=== PATIENT | male | born 1930 | race Caucasian/White ===

== ENCOUNTER 2017-01-02 07:38 | Day surgery (SDC) | payer MEDICARE, BC ==
[~2017-01-02 07:38] MED LIST: Lactated Ringers 1,000 ML IV SCH; Sodium Chloride 0.9% 10 ML Syringe FLUSH PRN
[2017-01-02] MEDS ORDERED: ceFAZolin 1 GM in Sodium Chloride 0.9% 50 ML IV ONE (08:45)
[2017-01-02] MEDS ORDERED: fentaNYL 100 MCG/2 ML SDV IV ONE (09:00)
[2017-01-02] MEDS ORDERED: Propofol 200 MG/20 ML SDV IV ONE (09:00)
[2017-01-02] MEDS ORDERED: Bupivacaine 0.5% 30 ML SDV ONE (09:55)
[2017-01-02] MEDS ORDERED: Lidocaine 1% with EPINEPHrine 1:100,000 20 ML MDV ONE (09:56)
[2017-01-02] MEDS ORDERED: LANTUS SQ PRN (10:15)
[2017-01-02] MEDS ORDERED: Ondansetron 4 MG/2 ML SDV IVPUSH PRN (10:18)
--- NOTE | 2017-01-02 10:18 | PCM.OPNOTE ---
- General Post-Op/Procedure Note Date of Surgery/Procedure: 01/02/17 Operative Procedure(s): rih repair with mesh Findings: indirect hernia Pre Op Diagnosis: rih. without obstruction or gangrene Post-Op Diagnosis: Same Anesthesia Technique: Local (24 ml 1% lido with epi/0.5% buvipicaine), MAC Primary Surgeon: Mathew Long Anesthesia Provider: Danii Knott Pathology: hernia sac Complications: None Condition: Good Free Text/Narrative:: see dictation
[2017-01-02] MEDS: Tamsulosin 0.4 MG Cap.ER PO SCH (11:10)
[2017-01-02] MEDS: Levothyroxine 100 MCG Tab *PTOM PO SCH (11:11)
[2017-01-02] MEDS: Furosemide 40 MG Tab *PTOM PO SCH (11:11)
[2017-01-02] MEDS: Omeprazole 20 MG Cap.CR *PTOM PO SCH (11:11)
[2017-01-02] MEDS: Acetaminophen/HYDROcodone 325-5 MG Tab PO PRN ×2 (12:02→19:53)
--- NOTE | 2017-01-02 15:39 | OR ---
DATE OF OPERATION: 01/02/2017 SURGEON: Mathew Long MD PROCEDURE PERFORMED: Right inguinal hernia repair. PREOPERATIVE DIAGNOSES: Symptomatic right inguinal hernia without obstruction or gangrene. POSTOPERATIVE DIAGNOSES: Symptomatic right inguinal hernia without obstruction or gangrene. INDICATIONS FOR PROCEDURE: This is an 86-year-old white male with multiple medical problems. Most significant being stage 5 chronic renal disease, which requires dialysis 3 days a week. The patient has a hernia on the right side, which has affected his quality of life because it becomes incarcerated or has to be reduced multiple times during the day as a result of this he has become less active. He was offered and accepted an open hernia repair. INTRAOPERATIVE FINDINGS: As follows. This was done under local MAC. Total of 24 mL of 1:1 mixture of 1% lidocaine with epinephrine 0.5% bupivacaine was used, and the defect itself was repaired with a Bard mesh preshaped mesh with a lot number [id number], reference #[id number] with the use date by 08/29/2021. DESCRIPTION OF OPERATION: After an excellent sedation was given via anesthesia. The patient was prepped and draped in usual sterile manner. A 1:1 mixture of 1% lidocaine with epinephrine 0.5% bupivacaine was used for our local. We started by infiltrating in the area of the planned incision, which was approximately [facility] between the anterior superior iliac spine and the symphysis pubis along the inguinal ligament. A skin wheal was then raised approximately 2 cm from the anterior superior iliac spine and a deep injection of 5 mL was made into the deep musculature. Using a spinal needle, a skin wheal was raised from this point to the umbilicus and then down along the inguinal ligament. Our incision was then made with a #15 scalpel blade. Underlying subcutaneous fat was divided using electrocautery. Superficial inferior epigastric vessels were clamped, divided, and tied with 2-0 Vicryl ties. Deep injection was made into the area of Brad's before dividing and then more injection was made through the aponeurosis of the external oblique. Duc was made in the aponeurosis and carried out through the external ring. Cord was then gently mobilized. Ilioinguinal nerve was identified and was obvious if this was going to be involved in incorporating the internal mesh and this was clamped, divided, and tied with 2-0 Vicryl tie. After mobilizing the cord, the hernia sac was carefully identified. This was then dissected free with a combination of sharp and blunt dissection. The sac was opened and the incarcerated omentum was then dissected and reduced. The sac was then twisted on itself and then 0 Ethibond was used to suture ligate the excess sac which was then transected. After completing this, our mesh was placed on the floor of the canal. The keyhole was closed with running 2-0 Prolene. A 2-0 Prolene was used to tack the mesh along the inguinal ligament inferiorly. OptiFix was then used to fix the mesh to the floor of the inguinal canal. The area was irrigated. The aponeurosis was then closed with a running 3-0 Vicryl and 3-0 Vicryl was used to close the Brad's fascia. The skin was closed gigi. Needle, sponge, and instrument counts were reported as correct. The patient was taken to recovery room in good condition. /[id number] /MODL
[2017-01-02] MEDS ORDERED: PRAVASTATIN SODIUM 80 MG PO SCH (21:00)
[2017-01-02] MEDS ORDERED: BIMATOPROST 0.01% EYEBOTH SCH (21:00)
[2017-01-02] MEDS: LABETALOL 200 MG PO SCH (22:08)
[2017-01-03] MEDS: Acetaminophen/HYDROcodone 325-5 MG Tab PO PRN (03:52)
[2017-01-03] MEDS: Levothyroxine 100 MCG Tab *PTOM PO SCH (06:09)
[2017-01-03] MEDS: Omeprazole 20 MG Cap.CR *PTOM PO SCH (06:43)
--- NOTE | 2017-01-03 07:46 | PCM.SURGPN ---
- General Info Date of Service: 01/03/17 POD#: 1 Functional Status: Reports: pain controlled, tolerating diet - Review of Systems Pulmonary: Reports: no symptoms Cardiovascular: Reports: No Symptoms Gastrointestinal: Reports: No symptoms Skin: Reports: no symptoms - Patient Data Vitals - most recent: Last Vital Signs Temp 36.6 C 01/03/17 03:57 Pulse 80 01/03/17 03:57 Resp 20 01/03/17 03:57 BP 143/79 H 01/03/17 03:57 Pulse Ox 95 01/03/17 03:57 Weight - most recent: 70.76 kg I&O - last 24 hours: Intake & Output 01/02/17 01/03/17 01/03/17 22:59 06:59 14:59 Intake Total 380 Balance 380 Lab Results last 24 hrs: Laboratory Results - last 24 hr 01/02/17 01/02/17 01/02/17 Range/Units 08:15 08:15 08:15 WBC 5.1 (4.5-12.0) X10-3/uL RBC 3.93 L (4.30-5.75) x10(6)uL Hgb 11.5 (11.5-15.5) g/dL Hct 35.3 (30.0-51.3) % MCV 89.8 (80-96) fL MCH 29.4 (27.7-33.6) pg MCHC 32.7 (32.2-35.4) g/dL RDW 19.8 H (11.5-15.5) % Plt Count 157 (125-369) X10(3)uL MPV 8.3 (7.4-10.4) fL Neut % (Auto) 64.8 (46-82) % Lymph % (Auto) 15.9 (13-37) % [place] % (Auto) 12.6 H (4-12) % Eos % (Auto) 6 H (1.0-5.0) % Baso % (Auto) 1 (0-2) % Neut # (Auto) 3.4 (1.6-8.3) # Lymph # (Auto) 0.8 (0.6-5.0) # [place] # (Auto) 0.6 (0.0-1.3) # Eos # (Auto) 0.3 (0.0-0.8) # Baso # (Auto) 0.0 (0.0-0.2) # PT 14.0 H (8.7-11.1) INR 1.38 H (0.89-1.13) Sodium 137 (135-145) mmol/L Potassium 3.6 (3.5-5.3) mmol/L Chloride 99 L (100-110) mmol/L Carbon Dioxide 32 H (23-29) mmol/L BUN 23 (8-23) mg/dL Creatinine 1.5 H (0.6-1.3) mg/dL Est Cr Clr Drug Dosing 33.66 mL/min Estimated GFR (MDRD) 44 L (>60) BUN/Creatinine Ratio 15.3 (9-20) Glucose 144 H (80-116) mg/dL POC Glucose (80-116) mg/dL Calcium 9.5 (8.6-10.2) mg/dL 01/02/17 01/03/17 Range/Units 21:26 06:09 WBC (4.5-12.0) X10-3/uL RBC (4.30-5.75) x10(6)uL Hgb (11.5-15.5) g/dL Hct (30.0-51.3) % MCV (80-96) fL MCH (27.7-33.6) pg MCHC (32.2-35.4) g/dL RDW (11.5-15.5) % Plt Count (125-369) X10(3)uL MPV (7.4-10.4) fL Neut % (Auto) (46-82) % Lymph % (Auto) (13-37) % [place] % (Auto) (4-12) % Eos % (Auto) (1.0-5.0) % Baso % (Auto) (0-2) % Neut # (Auto) (1.6-8.3) # Lymph # (Auto) (0.6-5.0) # [place] # (Auto) (0.0-1.3) # Eos # (Auto) (0.0-0.8) # Baso # (Auto) (0.0-0.2) # PT (8.7-11.1) INR (0.89-1.13) Sodium (135-145) mmol/L Potassium (3.5-5.3) mmol/L Chloride (100-110) mmol/L Carbon Dioxide (23-29) mmol/L BUN (8-23) mg/dL Creatinine (0.6-1.3) mg/dL Est Cr Clr Drug Dosing mL/min Estimated GFR (MDRD) (>60) BUN/Creatinine Ratio (9-20) Glucose (80-116) mg/dL POC Glucose 195 H 141 H (80-116) mg/dL Calcium (8.6-10.2) mg/dL Med Orders - Current: Current Medications Hydrocodone Bitart/Acetaminophen ([place] 325-5 Mg) 1 tab PO Q4H PRN PRN Reason: Pain (mild 1-3) Last Admin: 01/03/17 03:52 Dose: 1 tab Bimatoprost (Lumigan 0.01% Ophth Soln) 1 ml EYEBOTH BEDTIME [facility] Last Admin: 01/02/17 22:11 Dose: 1 drop Furosemide (Lasix) 40 mg PO DAILY [facility] Last Admin: 01/02/17 11:11 Dose: Not Given Labetalol HCl (Normodyne) 200 mg PO BID [facility] Last Admin: 01/02/17 22:08 Dose: 200 mg Levothyroxine Sodium (Synthroid) 100 mcg PO DAILY@0600 [facility] Last Admin: 01/03/17 06:09 Dose: 100 mcg Lantus Solostar * (Ptom) 8 units SQ ASDIRECTED PRN PRN Reason: BLOOD SUGAR OVER 200 Pravastatin Sodium (80 Mg *Ptom) 80 mg PO BEDTIME [facility] Last Admin: 01/02/17 22:11 Dose: 80 mg Omeprazole (Omeprazole) 20 mg PO ACBREAKFAST [facility] Last Admin: 01/03/17 06:43 Dose: 20 mg Ondansetron HCl (Zofran) 4 mg IVPUSH Q6H PRN PRN Reason: Nausea/Vomiting Sodium Chloride (Saline Flush) 10 ml FLUSH ASDIRECTED PRN PRN Reason: Keep Vein Open Tamsulosin HCl (Flomax) 0.4 mg PO DAILY [facility] Last Admin: 01/02/17 11:10 Dose: Not Given Discontinued Medications Bupivacaine HCl (Marcaine 0.5%) 15 ml .XX .STK-MED ONE Stop: 01/02/17 09:56 Last Admin: 01/02/17 09:55 Dose: 15 ml Lactated Ringer's (Ringers, Lactated) 1,000 mls @ 125 mls/hr IV ASDIRECTED [facility] Last Admin: 01/02/17 09:00 Dose: 125 mls/hr Cefazolin Sodium 1 gm/ Sodium (Chloride) 50 mls @ 200 mls/hr IV ONETIME ONE Stop: 01/02/17 08:59 Last Admin: 01/02/17 09:03 Dose: 200 mls/hr Lidocaine/Epinephrine (Xylocaine 1% With Epinephrine 1:100,000) 15 ml .XX .STK- MED ONE Stop: 01/02/17 09:57 Last Admin: 01/02/17 09:56 Dose: 15 ml - Exam Wound/Incisions: healing well, dressing dry and intact Lungs: Clear to auscultation, Normal respiratory effort Cardiovascular: Regular Rate, Regular Rhythm Abdomen: bowel sounds present, soft, no tenderness, no distension Skin: warm, dry, intact - Problem List & Annotations (1) Inguinal hernia of right side without obstruction or gangrene SNOMED Code(s): 60978488 Code(s): K40.90 - UNIL INGUINAL HERNIA, W/O OBST OR GANGR, NOT SPCF RECUR Status: Acute Current Visit: Yes - Problem List Review Problem List Initiated/Reviewed/Updated: Yes - My Orders Last 24 Hours: Active Orders 24 hr Category Date Time Status Patient Status [ADT] Routine ADT 01/02/17 07:30 Ordered Accu Check [Blood Glucose Check, Bedside] [RC] 07,21 Care 01/02/17 21:14 Active Blood Glucose Check, Bedside [RC] ONETIME Care 01/02/17 07:30 Hold Oxygen Therapy [RC] PRN Care 01/02/17 10:18 Active Patient to Empty Bladder [RC] ASDIRECTED Care 01/02/17 07:30 Hold RT Incentive Spirometry [RC] ASDIRECTED Care 01/02/17 07:30 Hold RT Incentive Spirometry [RC] Q2HWA Care 01/02/17 10:18 Active Up With Assistance [RC] QSHIFT Care 01/02/17 10:18 Active Verify Patient Consent Obtain [RC] ASDIRECTED Care 01/02/17 07:30 Hold Vital Signs [RC] 00,04,08,12,16,20 Care 01/02/17 10:18 Active Consistent Carbohydrate Diet [DIET] Diet 01/03/17 Breakfast Ordered Acetaminophen/HYDROcodone [[place] 325-5 MG] Med 01/02/17 10:18 Active 1 tab PO Q4H PRN Bimatoprost [LUMIGAN 0.01% Ophth Soln] Med 01/02/17 21:00 Active 1 ml EYEBOTH BEDTIME Furosemide [Lasix] Med 01/02/17 10:30 Active 40 mg PO DAILY Insulin Glarg,Human.Rec.Analog [Lantus Solostar] Med 01/02/17 10:15 Active 8 units SQ ASDIRECTED PRN Labetalol [Normodyne] Med 01/02/17 21:00 Active 200 mg PO BID Levothyroxine [Synthroid] Med 01/02/17 10:30 Active 100 mcg PO DAILY@0600 Omeprazole Med 01/02/17 10:30 Active 20 mg PO ACBREAKFAST Ondansetron [Zofran] Med 01/02/17 10:18 Active 4 mg IVPUSH Q6H PRN Pravastatin Sodium [Pravastatin Sodium] Med 01/02/17 21:00 Active 80 mg PO BEDTIME Sodium Chloride 0.9% [Saline Flush] Med 01/02/17 07:30 Active 10 ml FLUSH ASDIRECTED PRN Tamsulosin [Flomax] Med 01/02/17 10:30 Active 0.4 mg PO DAILY Peripheral IV Insertion Adult [OM.PC] Routine Oth 01/02/17 07:30 Ordered Sequential Compression Device [OM.PC] Routine Oth 01/02/17 07:30 Ordered Medication Orders Hydrocodone Bitart/Acetaminophen ([place] 325-5 Mg) 1 tab PO Q4H PRN PRN Reason: Pain (mild 1-3) Last Admin: 01/03/17 03:52 Dose: 1 tab Admin: 01/02/17 19:53 Dose: 1 tab Admin: 01/02/17 12:02 Dose: 1 tab Bimatoprost (Lumigan 0.01% Ophth Soln) 1 ml EYEBOTH BEDTIME [facility] Last Admin: 01/02/17 22:11 Dose: 1 drop Furosemide (Lasix) 40 mg PO DAILY [facility] Last Admin: 01/02/17 11:11 Dose: Labetalol HCl (Normodyne) 200 mg PO BID [facility] Last Admin: 01/02/17 22:08 Dose: 200 mg Levothyroxine Sodium (Synthroid) 100 mcg PO DAILY@0600 [facility] Last Admin: 01/03/17 06:09 Dose: 100 mcg Admin: 01/02/17 11:11 Dose: Lantus Solostar * (Ptom) 8 units SQ ASDIRECTED PRN PRN Reason: BLOOD SUGAR OVER 200 Pravastatin Sodium (80 Mg *Ptom) 80 mg PO BEDTIME [facility] Last Admin: 01/02/17 22:11 Dose: 80 mg Omeprazole (Omeprazole) 20 mg PO ACBREAKFAST [facility] Last Admin: 01/03/17 06:43 Dose: 20 mg Admin: 01/02/17 11:11 Dose: Ondansetron HCl (Zofran) 4 mg IVPUSH Q6H PRN PRN Reason: Nausea/Vomiting Sodium Chloride (Saline Flush) 10 ml FLUSH ASDIRECTED PRN PRN Reason: Keep Vein Open Tamsulosin HCl (Flomax) 0.4 mg PO DAILY [facility] Last Admin: 01/02/17 11:10 Dose: - Assessment Assessment (Free Text/Narrative):: ready for discharge - Plan Plan (Free Text/Narrative):: d/c to home
[2017-01-03] MEDS: Tamsulosin 0.4 MG Cap.ER PO SCH (08:36)
[2017-01-03] MEDS: Furosemide 40 MG Tab *PTOM PO SCH (08:36)
[2017-01-03] MEDS: LABETALOL 200 MG PO SCH (08:37)
[2017-01-03 08:44] VITALS: BP 122/61
== END 2017-01-03 11:30 | disposition home or self-care (01) ==
LOC: FB.SDS 07:38 → FB.MS 07:38 → FB.SDS 01-03 11:30
PROVIDERS: ATTEND Surgery
DX: K40.90 Unilateral inguinal hernia, without obstruction or gangrene, not specified as recurrent (principal); I25.810 Atherosclerosis of coronary artery bypass graft(s) without angina pectoris; E11.22 Type 2 diabetes mellitus with diabetic chronic kidney disease; I12.9 Hypertensive chronic kidney disease with stage 1 through stage 4 chronic kidney disease, or unspecified chronic kidney disease; N18.5 Chronic kidney disease, stage 5; Z79.4 Long term (current) use of insulin; Z79.01 Long term (current) use of anticoagulants; Z88.8 Allergy status to other drugs, medicaments and biological substances; Z79.899 Other long term (current) drug therapy; K21.9 Gastro-esophageal reflux disease without esophagitis; E78.5 Hyperlipidemia, unspecified; Z98.890 Other specified postprocedural states
CPT/HCPCS: 00830; 36415; 49505; 80048; 82962; 85025; 85610; 88300; 94150; A9270; C1781; J0690; J2704; J3010; J7050; J7120

== ENCOUNTER 2017-03-09 23:25 | Emergency (ER) | payer MEDICARE, BC ==
--- NOTE | 2017-03-09 23:39 | EDM.PDOC ---
ED HPI GENERAL MEDICAL PROBLEM - General Chief Complaint: General Stated Complaint: TUBE CAME OUT Time Seen by Provider: 03/09/17 23:25 Source of Information: Reports: Patient, EMS, Old Records History Limitations: Reports: No Limitations - History of Present Illness INITIAL COMMENTS - FREE TEXT/NARRATIVE: 86 yo male accidentally pulled out his subclavian port tonight while drying himself off after a shower. EMS transported with stable vitals and no active bleeding during transport. Onset: Today Onset Date: 03/09/17 Onset Time: 22:40 Duration: Minutes: Location: Reports: Chest Quality: Reports: Other (No pain) Severity: Mild Improves with: Reports: Other (time/direct pressure) Worsens with: Reports: None Context: Reports: Other (CRF) Associated Symptoms: Reports: No Other Symptoms Treatments [employer] WORKER: Reports: Other (see below) (direct pressure) - Related Data Allergies Allergy/AdvReac Type Severity Reaction Status Date / Time amlodipine Allergy Itching Verified 01/02/17 08:29 benazepril Allergy Itching Verified 01/02/17 08:29 Home Meds: Home Meds Bimatoprost [LUMIGAN 0.01% Ophth Soln] 1 drop EYEBOTH BEDTIME 01/01/17 [History] Cholecalciferol (Vitamin D3) [Vitamin D3] 2,000 units PO DAILY 01/01/17 [History ] Furosemide 40 mg PO DAILY 01/01/17 [History] Insulin Glarg,Human.Rec.Analog [Lantus Solostar] 8 units SQ ASDIRECTED PRN 01/01 [History] Labetalol [Normodyne] 200 mg PO BID 01/01/17 [History] Levothyroxine [Synthroid] 100 mcg PO DAILY 01/01/17 [History] Omeprazole 20 mg PO ACBREAKFAST 01/01/17 [History] Polyethylene Glycol [Polyox Wsr-301] 1.5 tsp PO DAILY 01/01/17 [History] Pravastatin Sodium 80 mg PO BEDTIME 01/01/17 [History] Tamsulosin [Flomax] 1 cap PO DAILY 01/01/17 [History] Warfarin Sliding Scale [Coumadin Sliding Scale] 5 mg PO DAILY 01/01/17 [History] Allopurinol [Zyloprim] 200 mg PO DAILY 01/02/17 [History] Acetaminophen/HYDROcodone [[place] 325-5 MG] 1 tab PO Q4H PRN #20 tablet 01/03/17 [Rx] Past Medical History - Past Health History Medical/Surgical History: Denies Medical/Surgical History HEENT History: Reports: Glaucoma, Hard of Hearing, Impaired Vision Other HEENT History: SENSORY HEARING LOSS Cardiovascular History: Reports: Afib, Bypass, CAD, High Cholesterol, Hypertension Respiratory History: Reports: Pneumonia, Recurrent Gastrointestinal History: Reports: GERD, Other (See Below) Other Gastrointestinal History: HX ACUTE GI BLEED Genitourinary History: Reports: Dialysis, Renal Disease Other Genitourinary History: RENAL DISEASE REQUIRING DIALYSIS 3 X/WK M W F Musculoskeletal History: Reports: Arthritis, Back Pain, Chronic Endocrine/Metabolic History: Reports: Diabetes, Type II, Hypothyroidism Hematologic History: Reports: Other (See Below) Other Hematologic History: ELEVATED INR - Infectious Disease History Infectious Disease History: Reports: Chicken Pox, Measles, Mumps - Past Surgical History GI Surgical History: Reports: Hernia Repair/Other Social & Family History - Family History Family Medical History: Noncontributory - Tobacco Use Smoking Status *Q: Never Smoker - Caffeine Use Caffeine Use: Reports: None - Recreational Drug Use Recreational Drug Use: No ED ROS GENERAL - Review of Systems Review Of Systems: See Below Constitutional: Reports: No Symptoms Respiratory: Reports: No Symptoms Cardiovascular: Reports: No Symptoms Musculoskeletal: Reports: No Symptoms Skin: Reports: No Symptoms Neurological: Reports: No Symptoms Psychiatric: Reports: No Symptoms ED EXAM, GENERAL - Physical Exam Exam: See Below Exam Limited By: No Limitations General Appearance: Alert, WD/WN, No Apparent Distress Eye Exam: Bilateral Eye: Normal Inspection Ears: Normal External Exam, Other (hearing aids) Ear Exam: Bilateral Ear: Auricle Normal Nose: Normal Inspection, Normal Mucosa, No Blood Throat/Mouth: Normal Inspection, Normal Lips, Normal Oropharynx, Normal Voice, No Airway Compromise Head: Atraumatic, Normocephalic Neck: Normal Inspection Respiratory/Chest: No Respiratory Distress, No Accessory Muscle Use Cardiovascular: Regular Rate, Rhythm Extremities: Normal Inspection, Normal Range of Motion, Non-Tender Neurological: Alert, Oriented, CN II-XII Intact, Normal Cognition, No Motor/ Sensory Deficits Psychiatric: Normal Affect, Normal Mood Skin Exam: Warm, Dry, Intact, Normal Color, No Rash, Other (EMS's pressure dressing removed and there was no active bleeding. The area was cleaned and a new dressing applied.) Course - Vital Signs Text/Narrative:: Dressing changed. Orthostatics- - Orders/Labs/Meds Orders: Active Orders 24 hr Category Date Time Status Orthostatic Vital Signs [RC] ASDIRECTED Care 03/09/17 23:26 Active Departure - Departure Time of Disposition: 23:55 Disposition: Home, Self-Care 01 Condition: Good Clinical Impression: Venous bleed - Discharge Information - My Orders Last 24 Hours: My Active Orders 03/09/17 23:26 Orthostatic Vital Signs [RC] ASDIRECTED - Assessment/Plan Last 24 Hours: My Active Orders 03/09/17 23:26 Orthostatic Vital Signs [RC] ASDIRECTED
[2017-03-10 01:02] VITALS: BP 175/60
== END 2017-03-10 00:15 | disposition home or self-care (01) ==
LOC: FB.ED 23:25
DX: Z45.2 Encounter for adjustment and management of vascular access device (principal); I10 Essential (primary) hypertension; I48.91 Unspecified atrial fibrillation; I25.10 Atherosclerotic heart disease of native coronary artery without angina pectoris; E78.00 Pure hypercholesterolemia, unspecified; K21.9 Gastro-esophageal reflux disease without esophagitis; E11.9 Type 2 diabetes mellitus without complications; E03.9 Hypothyroidism, unspecified; Z79.01 Long term (current) use of anticoagulants; Z79.4 Long term (current) use of insulin; Z79.899 Other long term (current) drug therapy; Z88.8 Allergy status to other drugs, medicaments and biological substances; Z98.890 Other specified postprocedural states
CPT/HCPCS: 99282; 99284; A4217

== ENCOUNTER 2018-09-23 19:55 | Emergency (ER) | payer MEDICARE, BC ==
--- NOTE | 2018-09-24 03:30 | EDM.PDOC ---
ED HPI GENERAL MEDICAL PROBLEM - General Chief Complaint: Neuro Symptoms/Deficits Stated Complaint: CONFUSION Time Seen by Provider: 09/23/18 20:10 Source of Information: Reports: Patient, Other History Limitations: Reports: Other (his speech is slightly slurred to the history is obtained from his [id number]. She is a caregiver for him. Son is very invested in his care and concerned.) - History of Present Illness INITIAL COMMENTS - FREE TEXT/NARRATIVE: Mr. Cowart is an 88-year-old man who lives at home and is seen daily by his xafndpps-ti-jmr and less frequently by his son. HIs daughter in law sees him everyday. Today he had his dialysis. He has dialysis Fridays.He has chronic kidney disease stage V. ON 09/21/18 he was thought to have pneumonia and had a shot of Rocephin and received PO azithromycin from Dr Paty Campos. Per his son and his breathing is better but is more loose congested cough. He was noted is having difficulty swallowing todayand "he has walking slower than usual" per his son. And "has been failing." Hehad more slurred speech per his son today. "He has not been eating for the last 10 days, and his health is "gone downhill in the last 12 days. His weight was 63 kg today. 5 days ago his weight was 65 kg. His son states "his last 7 pounds in the last 10 days Medical history is significant for chronic lung disease, CABG with three-vessel graft hypertension coronary artery disease presbycusis SNHL GI bleed history dialysis for chronic kidney disease stage V, insulin-dependent diabetes dyslipidemia, he uses a walker to get about home and has gout. His son is worried that he might have been having mini strokes. Rk has told me in xray he "doesn't want to live any more and he is giving up." He has never told his son this. His daughter confirms Rk's thoughts of He apparently feels very close to dqnqklno-iz-axi as she provides all his cares on a daily basis. He has a left hip fracture surgery1 year ago. He is always refused influenza shots. - Related Data Allergies Allergy/AdvReac Type Severity Reaction Status Date / Time amlodipine Allergy Itching Verified 09/23/18 20:47 benazepril Allergy Itching Verified 09/23/18 20:47 Home Meds: Home Meds Cholecalciferol (Vitamin D3) [Vitamin D3] 2,000 units PO DAILY 01/01/17 [History ] Furosemide 40 mg PO DAILY 01/01/17 [History] Insulin Glarg,Human.Rec.Analog [Lantus Solostar] 8 units SQ ASDIRECTED PRN 01/01 [History] Labetalol [Normodyne] 200 mg PO BID 01/01/17 [History] Levothyroxine [Synthroid] 100 mcg PO DAILY 01/01/17 [History] Omeprazole 20 mg PO ACBREAKFAST 01/01/17 [History] Pravastatin Sodium 80 mg PO BEDTIME 01/01/17 [History] Tamsulosin [Flomax] 1 cap PO DAILY 01/01/17 [History] Allopurinol [Zyloprim] 200 mg PO DAILY 01/02/17 [History] Acetaminophen [Tylenol Extra Strength] 1,000 mg PO Q6HR PRN 03/10/17 [History] Bimatoprost [LUMIGAN 0.01% Ophth Soln] 1 drop EYEBOTH BEDTIME 03/10/17 [History] Sennosides/Docusate Sodium [Senna S Tablet] 2 tab PO BEDTIME PRN 03/10/17 [ History] Warfarin [Coumadin] 2.5 mg PO THFRSA 03/10/17 [History] Warfarin [Coumadin] 3.75 mg PO SUMO 03/10/17 [History] Isosorbide Mononitrate [Imdur] 30 mg PO DAILY #30 tab.er 09/23/18 [Rx] Past Medical History - Past Health History Medical/Surgical History: Denies Medical/Surgical History HEENT History: Reports: Glaucoma, Hard of Hearing, Impaired Vision Other HEENT History: SENSORY HEARING LOSS Cardiovascular History: Reports: Afib, Bypass, CAD, High Cholesterol, Hypertension Respiratory History: Reports: Pneumonia, Recurrent Gastrointestinal History: Reports: GERD, Other (See Below) Other Gastrointestinal History: HX ACUTE GI BLEED Genitourinary History: Reports: Dialysis, Renal Disease Other Genitourinary History: RENAL DISEASE REQUIRING DIALYSIS 3 X/WK M W F Musculoskeletal History: Reports: Arthritis, Back Pain, Chronic Endocrine/Metabolic History: Reports: Diabetes, Type II, Hypothyroidism Hematologic History: Reports: Other (See Below) Other Hematologic History: ELEVATED INR - Infectious Disease History Infectious Disease History: Reports: Chicken Pox, Measles, Mumps - Past Surgical History GI Surgical History: Reports: Hernia Repair/Other Social & Family History - Family History Family Medical History: Noncontributory - Caffeine Use Caffeine Use: Reports: None ED ROS GENERAL - Review of Systems Review Of Systems: ROS reveals no pertinent complaints other than HPI. Constitutional: Reports: Malaise, Weakness, Fatigue, Weight Loss, Other HEENT: Reports: Hearing Loss Respiratory: Reports: Other (Increasing cough the cough has become increasingly looser and more moist. It no longer is as harsh as it was in the past week.) Cardiovascular: Reports: No Symptoms Endocrine: Reports: No Symptoms GI/Abdominal: Reports: No Symptoms : Reports: Other (Was about 60 mL of urine out a day wears attends dialysis twice a week Mondays and Fridays) Musculoskeletal: Reports: Other (Generalized weakness) Skin: Reports: No Symptoms Neurological: Reports: Trouble Speaking, Difficulty Walking, Other (Uses a walker) Psychiatric: Reports: No Symptoms Hematologic/Lymphatic: Reports: No Symptoms Immunologic: Reports: No Symptoms ED EXAM, NEURO - Physical Exam Exam: See Below Text/Narrative:: Pleasant retiring cachectic man who looks his age,has poor hearing and has had moderate muscle wasting. He is weak and per his son "can't get up and move to about very well." It was a surprise to me, when he got up to walk with a walker he "charged off" easily L the hallway with a walker and did very well walking. This was quite a surprise to his son. As his son thought he was weaker.IN general he di very well walking with his walker the ED Exam Limited By: Other (Crease.) General Appearance: Alert, No Apparent Distress, Other (Anesthetic and with moderate atrophy pulseless he is not well-nourished Or well muscled) Eye Exam: Bilateral Eye: Normal Inspection Ears: Normal External Exam, Normal Canal, Other (SNHL) Nose: Normal Inspection Throat/Mouth: Normal Inspection, Other (Semi moist oral mucosa) Neck: Normal Inspection, Supple, Non-Tender, Other (No Bruits heard in his neck) Respiratory/Chest: No Respiratory Distress, Lungs Clear, Normal Breath Sounds, No Accessory Muscle Use, Chest Non-Tender Cardiovascular: Normal Peripheral Pulses, Systolic Murmur (Soft systolic murmur parasternal border), Irregularly Irregular, Other (1+ pedal edema S3 gallop) GI/Abdominal: Normal Bowel Sounds, Soft, Non-Tender, No Organomegaly, No Distention, No Abnormal Bruit, No Mass (Male) Exam: Deferred Rectal (Males) Exam: Deferred Neurological: Alert, Normal Mood/Affect, Normal Dorsiflexion, CN II-XII Intact, Oriented x 3, Other (Creatinine was normal except cranial nerves VIII decreased hearing marked presbycusis SN HL patient had remarkable strength and walked very well with a walker.) DTR: 0: Bicep (R), Bicep (L), Patella (R), Patella (L) Back Exam: Normal Inspection Extremities: Normal Inspection, Non-Tender, Pedal Edema Psychiatric: Normal Affect, Other (quietly withdrawn but interacts moderately well with his iseqiqda-sw-fzv and son is as invested but the patient interacts more with the [id number]-eu-qlr) Skin Exam: Warm, Dry, Intact, Normal Color, No Rash Course - Vital Signs Last Recorded V/S: Last Vital Signs Temp 36.6 C 09/23/18 19:55 Pulse 75 09/23/18 19:55 Resp 20 09/23/18 19:55 BP 158/53 H 09/23/18 19:55 Pulse Ox 95 09/23/18 19:55 - Orders/Labs/Meds Orders: Active Orders 24 hr Category Date Time Status EKG Documentation Completion [RC] ASDIRECTED Care 09/23/18 20:37 Active CXR [Chest 1V Frontal] [CR] Stat Exams 09/23/18 20:37 Taken Head wo Cont [CT] Stat Exams 09/23/18 20:35 Taken EKG 12 Lead [EK] Routine Ther 09/23/18 20:36 Ordered Labs: Laboratory Tests 09/23/18 09/23/18 09/23/18 Range/Units 21:00 21:00 21:00 WBC 5.8 (4.5-12.0) X10-3/uL RBC 4.27 L (4.30-5.75) x10(6)uL Hgb 12.1 (11.5-15.5) g/dL Hct 37.1 (30.0-51.3) % MCV 86.9 (80-96) fL MCH 28.4 (27.7-33.6) pg MCHC 32.6 (32.2-35.4) g/dL RDW 15.1 (11.5-15.5) % Plt Count 190 (125-369) X10(3)uL MPV 7.4 (7.4-10.4) fL Neut % (Auto) 69.5 (46-82) % Lymph % (Auto) 12.0 L (13-37) % Lenoir % (Auto) 14.9 H (4-12) % Eos % (Auto) 3 (1.0-5.0) % Baso % (Auto) 0 (0-2) % Neut # (Auto) 4.0 (1.6-8.3) # Lymph # (Auto) 0.7 (0.6-5.0) # Lenoir # (Auto) 0.9 (0.0-1.3) # Eos # (Auto) 0.2 (0.0-0.8) # Baso # (Auto) 0.0 (0.0-0.2) # PT 12.6 H (8.7-11.1) INR 1.30 H (0.89-1.13) Sodium (135-145) mmol/L Potassium (3.5-5.3) mmol/L Chloride (100-110) mmol/L Carbon Dioxide (21-32) mmol/L BUN (7-18) mg/dL Creatinine (0.70-1.30) mg/dL Est Cr Clr Drug Dosing Estimated GFR (MDRD) (>60) BUN/Creatinine Ratio (9-20) Glucose (80-116) mg/dL Calcium (8.6-10.2) mg/dL Total Bilirubin (0.1-1.3) mg/dL AST (5-25) IU/L ALT (12-36) U/L Alkaline Phosphatase (56-112) IU/L Troponin I 0.137 H* (<0.017-0.056) ng/mL NT-Pro-B Natriuret Pep (<=450) pg/mL Total Protein (6.0-8.0) g/dL Albumin (3.2-4.6) g/dL Globulin g/dL Albumin/Globulin Ratio TSH, Ultra Sensitive (0.36-3.74) IU/mL 09/23/18 09/23/18 09/23/18 Range/Units 21:00 21:00 21:00 WBC (4.5-12.0) X10-3/uL RBC (4.30-5.75) x10(6)uL Hgb (11.5-15.5) g/dL Hct (30.0-51.3) % MCV (80-96) fL MCH (27.7-33.6) pg MCHC (32.2-35.4) g/dL RDW (11.5-15.5) % Plt Count (125-369) X10(3)uL MPV (7.4-10.4) fL Neut % (Auto) (46-82) % Lymph % (Auto) (13-37) % Lenoir % (Auto) (4-12) % Eos % (Auto) (1.0-5.0) % Baso % (Auto) (0-2) % Neut # (Auto) (1.6-8.3) # Lymph # (Auto) (0.6-5.0) # Lenoir # (Auto) (0.0-1.3) # Eos # (Auto) (0.0-0.8) # Baso # (Auto) (0.0-0.2) # PT (8.7-11.1) INR (0.89-1.13) Sodium 135 (135-145) mmol/L Potassium 3.4 L (3.5-5.3) mmol/L Chloride 97 L (100-110) mmol/L Carbon Dioxide 31 (21-32) mmol/L BUN 34 H (7-18) mg/dL Creatinine 2.8 H* (0.70-1.30) mg/dL Est Cr Clr Drug Dosing TNP Estimated GFR (MDRD) 22 L (>60) BUN/Creatinine Ratio 12.1 (9-20) Glucose 93 (80-116) mg/dL Calcium 8.7 (8.6-10.2) mg/dL Total Bilirubin 1.0 (0.1-1.3) mg/dL AST 23 (5-25) IU/L ALT 28 (12-36) U/L Alkaline Phosphatase 138 H (56-112) IU/L Troponin I (<0.017-0.056) ng/mL NT-Pro-B Natriuret Pep 353322 H* (<=450) pg/mL Total Protein 6.9 (6.0-8.0) g/dL Albumin 2.7 L (3.2-4.6) g/dL Globulin 4.2 g/dL Albumin/Globulin Ratio 0.6 TSH, Ultra Sensitive 3.90 H (0.36-3.74) IU/mL - Radiology Interpretation CT Results Date: 09/23/18 (Age-related changes and the CT could have no COMMUNITY OUTREACH COORDINATOR bleed.) - Re-Assessments/Exams Free Text/Narrative Re-Assessment/Exam: 09/24/18 03:47 Chest x-ray atelectasis and/or possible pneumonia right lower lobe per reading radiologist Free Text/Narrative Re-Assessment/Exam: 09/24/18 03:47 EKG atrial fibrillation heart rate 73 left posterior hemiblock anteroseptal infarct age indeterminate with poor R-wave progression across the anterior precordials Departure - Departure Time of Disposition: 22:10 (Patient is beginning to show the aware of his injuries. Psychologically he does want to live anymore. He did not tell that to son. But told that the consequently shoulder with his son. His son felt this was a surprise to him. And it stunned his son somewhat. Other diagnosis significant heart failure 179,000. The reflexes marginal existence and cardiovascular status. His dialysis is keeping her life. Without that he would have probably marked pulmonary edema. Has mild primary edema. He has been treated for pneumonia is difficult to be certain it was truly pneumonia or his chest congestion from coughing and/or heart failure. More likely is the latter. He'll continue his antibiotics. Other diagnosis coronary disease, CABG 3 vessel , hypertension, right eye is a also states 5 kidney disease, dyslipidemia, gout , insulin dependent diabetes, chronic obstructive lung disease atrial fibrillation. Hyponatremia hypokalemia hypochloremia refuses influenza shots on dialysis. Most surprising part of the encounter with patient. Positives his stress for getting up and walking with a walker. His son was under the impression that is fairly. It is my impression that when he wants to live he chooses to the same. But lately his thought more about dying and expressed that to his daughter in law. He expressed that to me. This was quite a shock to his son. Family feels comfortable taking him home. Providing environment where he can get into either the [facility] or assisted living only his follicle in his own home. I started him on Imdur. Perhaps that might improve some of his coronary circulation and diminished workload of his congestive heart failure. His 179,000 BNP is a very impressive number for significant heart failure. Medically he does not appear to have much heart failure. His cough most likely is related to his heart failure. And less likely related to a pneumonia.) Disposition: Home, Self-Care 01 Condition: Fair Clinical Impression: Cough, Gallop rhythm Congestive heart failure with left ventricular diastolic dysfunction Qualifiers: Congestive heart failure chronicity: chronic Qualified Code(s): I50.32 - Chronic diastolic (congestive) heart failure Gout Qualifiers: Gout site: unspecified site Gout etiology: due to renal impairment Chronicity: chronic Presence of tophus: without tophus Qualified Code(s): M1A.30X0 - Chronic gout due to renal impairment, unspecified site, without tophus (tophi) COPD (chronic obstructive pulmonary disease) Qualifiers: COPD type: unspecified COPD Qualified Code(s): J44.9 - Chronic obstructive pulmonary disease, unspecified Atrial fibrillation Qualifiers: Atrial fibrillation type: chronic Qualified Code(s): I48.2 - Chronic atrial fibrillation - Discharge Information *PRESCRIPTION DRUG MONITORING PROGRAM REVIEWED*: Not Applicable *COPY OF PRESCRIPTION DRUG MONITORING REPORT IN PATIENT PATRICIA: Not Applicable Prescriptions: Isosorbide Mononitrate [Imdur] 30 mg PO DAILY #30 tab.er Referrals: Chi Laws MD [Primary Care Provider] - Forms: ED Department Discharge Additional Instructions: Your heart appears to have new heart attack. It is difficult to be sure of if this a heart attack or its chemical changes that have occurred in your heart muscle secondary to what MD's call demand ischemia We know that 20% of patients who have atrial fibrillation can have elevated troponins that chemically are suggestive of a heart attack. Your weakness is a function of your age and also lktv-tet-asor of dialysis and chronic kidney disease. I have prescribed a medicine that opens up her coronary arteries that and might be helpful. This is a long-acting Nitroglcerine. If it makes her too dizzy or you feel miserable with the medicine stop at. Again this medicine is called Imdur and it is a trial. I think it would be good for your family to consider a different living arrangement so you have more healthcare providers available for your health care. Follow-up with her doctor week earlier if worse - My Orders Last 24 Hours: My Active Orders 09/23/18 20:35 Head wo Cont [CT] Stat 09/23/18 20:36 EKG 12 Lead [EK] Routine 09/23/18 20:37 EKG Documentation Completion [RC] ASDIRECTED CXR [Chest 1V Frontal] [CR] Stat - Assessment/Plan Last 24 Hours: My Active Orders 09/23/18 20:35 Head wo Cont [CT] Stat 09/23/18 20:36 EKG 12 Lead [EK] Routine 09/23/18 20:37 EKG Documentation Completion [RC] ASDIRECTED CXR [Chest 1V Frontal] [CR] Stat
[2018-09-24 04:08] VITALS: BP 115/84
== END 2018-09-23 23:05 | disposition home or self-care (01) ==
LOC: FB.ED 19:55
DX: I13.2 Hypertensive heart and chronic kidney disease with heart failure and with stage 5 chronic kidney disease, or end stage renal disease (principal); I50.32 Chronic diastolic (congestive) heart failure; E11.22 Type 2 diabetes mellitus with diabetic chronic kidney disease; N18.5 Chronic kidney disease, stage 5; M1A.30X0 Chronic gout due to renal impairment, unspecified site, without tophus (tophi); I48.2 Chronic atrial fibrillation; R00.8 Other abnormalities of heart beat; R05 Cough; I48.91 Unspecified atrial fibrillation; I25.10 Atherosclerotic heart disease of native coronary artery without angina pectoris; Z95.1 Presence of aortocoronary bypass graft; E78.00 Pure hypercholesterolemia, unspecified; K21.9 Gastro-esophageal reflux disease without esophagitis; E03.9 Hypothyroidism, unspecified; Z99.2 Dependence on renal dialysis; Z88.8 Allergy status to other drugs, medicaments and biological substances; Z79.4 Long term (current) use of insulin; Z79.899 Other long term (current) drug therapy; Z79.01 Long term (current) use of anticoagulants
CPT/HCPCS: 36415; 70450; 71045; 80053; 83880; 84443; 84484; 85025; 85610; 93005; 99285